=== PATIENT | male | born 1980 | race Caucasian/White ===

== ENCOUNTER 2021-03-15 11:40 | Emergency (ER) | payer BC, SELFPAY ==
--- NOTE | ~2021-03-15 | XR_ITS ---
XR chest 1V portable DATE: 03/15/2021 12:28 INDICATION: Dizziness TECHNIQUE: Portable upright AP chest COMPARISON: None FINDINGS: Normal heart size. No hilar or mediastinal enlargement. No pulmonary infiltrate or consol idation, pulmonary vascular congestion or pleural effusion or pneumothorax. IMPRESSION: Negative Reviewed, dictated and finalized at location A. [employer] IMPRESSION: Negative
[2021-03-15 11:45] VITALS: BP 152/94; PULSE 76; RESP 18; TEMP 36.8; O2SAT 97
--- NOTE | 2021-03-15 12:03 | ECG_ITS ---
Measurements Intervals [place] Rate: 69 P: 12 WV: 127 QRS: 16 QRSD: 110 T: 30 QT: 373 QTc: 402 Interpretive Statements SINUS RHYTHM WITH SINUS ARRHYTHMIA INCOMPLETE RIGHT BUNDLE BRANCH BLOCK CONSIDER INFERIOR INFARCT, AGE INDETERMINATE ABNORMAL ECG Electronically Signed On 03-15-2021 12:40:11 [employer] by Cale Yung D.O.
[2021-03-15 12:41] LABS: Basophils Absolute Auto 0.1 K/mm3 (0.0-0.1); Basophils Percent Auto 1.4 % (0.2-1.2); Eosinophils Absolute Auto 0.2 K/mm3 (0-0.3); Eosinophils Percent Auto 3.1 % (0-4.4); Hematocrit 43.2 % (42.0-52.0); Hemoglobin 14.3 g/dL (14.0-18.0); Immature Granulocyte Absolute 0.01 K/mm3 (0.00-0.031); Immature Granulocyte Percent A 0.2 % (0-0.5); Lymphocytes Absolute Auto 1.54 K/mm3 (0.9-3.2); Lymphocytes Percent Auto 26.8 % (18.3-44.2); Mean Corpuscular HGB Conc 33.1 g/dl (32-36); Mean Corpuscular Hemoglobin 30.4 pg (26-34); Mean Corpuscular Volume 91.7 fl (80-100); Mean Platelet Volume 9.3 fl (7.4-10.4); Monocytes Absolute Auto 0.5 K/mm3 (0.1-0.6); Neutrophils Absolute Auto 3.4 K/mm3 (1.3-6.7); Neutrophils Percent Auto 59.5 % (45.5-73.1); Platelet Count Result 301 k/mm3 (150-375); Red Blood Count 4.71 M/mm3 (4.6-6.20); Red Cell Distribution Width 13.2 % (11.5-14.5); White Blood Count 5.8 K/mm3 (4.5-10.0)
--- NOTE | 2021-03-15 12:43 | ED.DIZZY ---
HPI - Dizziness General Chief Complaint: Dizziness Stated Complaint: smell and taste is off, nose bleed, dizzy Time Seen by Provider: 03/15/21 11:57 History of Present Illness HPI Narrative: 40-year-old male presenting the emergency department for evaluation an episode strange smell, strange taste and associated dizziness. Patient states he had onset of smelling something strange and tasting something strange which she could not identify and had associated dizziness/spinning sensation for approximately 10 minutes. patient stated this occurred once about a week and a half ago lasted only 10 minutes. Patient states that began today and lasted approximately 20 minutes. Patient states he did have a short nosebleed from the left nare. Denies ever having this before. Denies any significant PMH. Related Data Allergies Allergy/AdvReac Type Severity Reaction Status Date / Time No Known Allergies Allergy Verified 03/15/21 12:16 Review of Systems Review of Systems: CONSTITUTIONAL: Onset of strange smell strange taste and dizziness/vertigo EYES: Denies visual changes, redness, or discharge. ENT: Short lasting epistaxis CARDIOVASCULAR: Denies chest pain, palpitations, or edema. RESPIRATORY: Denies cough or dyspnea. GASTROINTESTINAL: Denies abdominal pain, nausea, vomiting, or diarrhea. GENITOURINARY: Denies dysuria or hematuria. SKIN: Denies rash or itching. MUSCULOSKELETAL: Denies back pain, joint pain, or myalgia. NEUROLOGIC: Denies headache, numbness, or weakness. Exam Narrative: APPEARANCE: Well appearing, no pain, no distress, well-nourished. HEAD: normocephalic, atraumatic. EYES: PERRLA/EOMI, conjunctivae clear. NOSE: Normal no drainage EARS:TMS clear with good light reflex. THROAT: Pharynx clear, no exudate. NECK: Supple. No adenopathy, no masses. RESPIRATORY: Airway patent, respirations nonlabored. Clear to auscultation bilaterally, no rales, rhonchi, wheezing. CARDIOVASCULAR: Regular rate and rhythm without murmurs rubs or gallops. ABDOMINAL: Soft, nontender, nondistended, normal bowel sounds MUSCULOSKELETAL: Moves all extremities. Strength/ROM intact, No edema, No calf tenderness. NEURO: Alert. Cranial nerves II through XII intact. Good gait. Good coordination SKIN: Warm, dry. Normal Color Course Course Emergency Course: Patient was updated on the results of his labs and x-rays. Patient is currently asymptomatic at this time. Symptoms may be due to vertigo or sinusitis. Patient was encouraged to have close follow-up with his primary care physician. All questions and concerns were addressed. Patient was symptom-free and stable at time of discharge from the emergency department. Vital Signs Vital signs: Vital Signs Temperature 98.2 F 03/15/21 11:45 Pulse Rate 76 03/15/21 11:45 Respiratory Rate 18 03/15/21 11:45 Blood Pressure 152/94 H 03/15/21 11:45 Pulse Oximetry 97 03/15/21 11:45 Temperature 98.2 F 03/15/21 11:45 Pulse Rate 76 03/15/21 11:45 Respiratory Rate 18 03/15/21 11:45 Blood Pressure 152/94 H 03/15/21 11:45 Pulse Oximetry 97 03/15/21 11:45 MDM - Dizziness Lab Data Attestation: I reviewed the patient's lab results. Result diagrams: 03/15/21 12:33 03/15/21 12:33 Labs: Lab Results 03/15/21 03/15/21 03/15/21 Range/Units 12:33 12:33 14:56 WBC 5.8 (4.5-10.0) K/mm3 RBC 4.71 (4.6-6.20) M/mm3 Hgb 14.3 (14.0-18.0) g/dL Hct 43.2 (42.0-52.0) % MCV 91.7 (80-100) fl MCH 30.4 (26-34) pg MCHC 33.1 (32-36) g/dl RDW 13.2 (11.5-14.5) % Plt Count 301 (150-375) k/mm3 MPV 9.3 (7.4-10.4) fl Immature Gran % (Auto) 0.2 (0-0.5) % Neut % (Auto) 59.5 (45.5-73.1) % Lymph % (Auto) 26.8 (18.3-44.2) % [place] % (Auto) 9.0 H (2.6-8.5) % Eos % (Auto) 3.1 (0-4.4) % Baso % (Auto) 1.4 H (0.2-1.2) % Lymph # (Auto) 1.54 (0.9-3.2) K/mm3 [place] # (Auto) 0.5 (0.1-0.6) K/mm3 Eos
[2021-03-15 12:52] LABS: Alanine Aminotransferase 29 U/L (4-50); Alkaline Phosphatase 52 U/L (38-126); Anion Gap 15 mmol/L (8-16); Aspartate Amino Transferase 24 U/L (17-59); Bilirubin,Total 0.5 mg/dL (0.2-1.3); Blood Urea Nitrogen 23 mg/dL (9-20); Calcium 9.7 mg/dL (8.4-10.2); Carbon Dioxide 24 mmol/L (22-30); Chloride 99 mmol/L (98-107); Estimated CRCL calculation 87 ml/min; Estimated Glomerular Filt Rate > 60; Glucose 103 mg/dL (65-110); Potassium 3.8 mmol/L (3.4-5.0); Sodium 138 mmol/L (137-145)
[2021-03-16 21:55] LABS: SARS-CoV-2 RNA PCR Negative
== END 2021-03-15 15:00 | disposition home or self-care (01) ==
PROVIDERS: Emergency Provider Emergency Medicine
DX: R42 Dizziness and giddiness (principal); Z20.822 Contact with and (suspected) exposure to COVID-19
CPT/HCPCS: 36415; 71045; 80053; 85025; 93005; 99283; C9803; U0003; U0005